=== PATIENT | female | born 1980 | race Caucasian/White ===

== ENCOUNTER → 2020-09-17 | Outpatient (CLI) | payer OTHER | END | disposition home or self-care (01) | LOC: LAB 10:02 | PROVIDERS: ATTEND Nurse Practitioner Family | DX: U07.1 COVID-19 (principal) | CPT/HCPCS: C9803; U0003 ==

== ENCOUNTER 2021-07-13 10:11 | Emergency (ER) | payer BC, OTHER ==
[~2021-07-13] VITALS: Ht 162.6 cm; Wt 54.0 kg
[2021-07-13] MEDS ORDERED: SODIUM CHLORIDE 0.9% 1,000 ML IV ONE (13:15)
[2021-07-13] MEDS ORDERED: KETOROLAC TROMETH 30 MG/ML 1ML VIAL IV ONE (13:15)
[2021-07-13] MEDS ORDERED: PROCHLORPERAZINE EDISYLATE 5 MG/ML 2ML VIAL IV ONE (13:15)
[2021-07-13] MEDS ORDERED: diphenhdrAMINE HCL 50 MG/1 ML VL IV ONE (13:15)
[2021-07-13 14:36] VITALS: BP 132/80
== END 2021-07-13 14:45 | disposition home or self-care (01) ==
LOC: ER 10:11
DX: G43.909 Migraine, unspecified, not intractable, without status migrainosus (principal)
CPT/HCPCS: 70450; 96361; 96374; 96375; 99284; J0780; J1200; J1885; J7030

== ENCOUNTER 2021-10-17 18:37 | Inpatient (IN) | payer BC ==
[~2021-10-17] VITALS: Ht 160 cm; Wt 63.5 kg
[2021-10-17 20:05] LABS: Basophils # (auto) 0 10 ^3/uL (0-0.2); Basophils % (auto) 0.4 % (0.0-2.0); Eosinophils # (auto) 0 10 ^3/uL (0-0.8); Eosinophils % (auto) 0.3 % (0.0-7.0); Hematocrit 43.2 % (36.0-46.0); Hemoglobin 14.3 g/dL (12.2-16.2); Lymphocytes # (auto) 1.5 10 ^3/uL (0.4-5.4); Lymphocytes % (auto) 11.4 % (10.0-50.0); Mean Corpuscular Hemoglobin 29.7 pg (28.0-32.0); Mean Corpuscular Hgb Conc. 33.1 g/dL (32.0-36.0); Mean Corpuscular Volume 89.7 fL (80.0-100.0); Monocytes # (auto) 0.7 10 ^3/uL (0-1.3); Monocytes % (auto) 5.2 % (0.0-12.0); Neutrophils # (auto) 10.9 10 ^3/uL (1.6-8.6); Neutrophils % (auto) 82.7 % (37.0-80.0); Nucleated Red Blood Cells % 0.1 %; Red Blood Cells 4.81 10^6/uL (4.0-5.20); Red Cell Distribution Width 12.9 % (11.8-14.3); White Blood Cell 13.2 10^3/uL (4.4-10.8)
[2021-10-17 20:45] LABS: Albumin 3.8 g/dL (3.4-5.0); Calcium 8.7 mg/dL (8.5-10.1); Potassium 4.5 mmol/L (3.5-5.1)
[2021-10-17 20:52] LABS: BUN/Creatinine Ratio 16.4; Bilirubin, Total 0.5 mg/dL (0.2-1.0); Total Protein 7.6 g/dL (6.4-8.2)
[2021-10-17] MEDS ORDERED: ASPirin 81 mg TAB PO ONE (21:15)
[2021-10-17] MEDS ORDERED: ENOXAPARIN SOD 100 MG/1 ML SYRINGE SC ONE (21:15)
[2021-10-17 22:38] LABS: INR 1.03 (0.9-1.15); Partial Thromboplastin Time 27.3 sec (23.6-33.0)
[2021-10-17] MEDS: NITROGLYCERIN 0.4 MG SL TAB SL PRN (22:49)
[2021-10-18] VITALS (15 sets, daily range): BP systolic 100–137; BP diastolic 66–92
[2021-10-18] MEDS ORDERED: MORPHINE SULFATE 4 MG/ML SYR/VIAL IV PRN (03:00)
[2021-10-18] MEDS ORDERED: MORPHINE SULFATE INJECTION 2 MG/ML SYRG IV PRN (03:00)
[2021-10-18] MEDS: SODIUM CHLORIDE 0.9% 1,000 ML IV SCH ×2 (03:17→15:44)
[2021-10-18 03:58] LABS: Anion Gap 11 (5-15); BUN/Creatinine Ratio 17.6; Blood Urea Nitrogen 9 mg/dL (7-18); Calcium 8.6 mg/dL (8.5-10.1); Carbon Dioxide 21 mmol/L (21-32); Chloride 109 mmol/L (98-107); GFR African American 169 mL/min; GFR Non-African American 140 mL/min; Glucose 98 mg/dL (74-106); Potassium 3.7 mmol/L (3.5-5.1); Sodium 141 mmol/L (136-145)
[2021-10-18 04:01] LABS: Urine Bacteria NONE SEEN /hpf (None Seen); Urine Blood Negative /uL (Negative); Urine Mucus FEW (None Seen); Urine Specific Gravity 1.022 (1.001-1.035); Urine WBC 1 /hpf (0 - 5)
[2021-10-18 04:18] LABS: Alcohol, Urine < 3.0 mg/dL (0-10); Barbiturate Scree,Urine NEGATIVE (NEGATIVE); Benzodiazephine Screen, Urine NEGATIVE (NEGATIVE); Cannabinoid Screen, Urine NEGATIVE (NEGATIVE); Cocaine Screen, Urine NEGATIVE (NEGATIVE); Opiate Scree,Urine NEGATIVE (NEGATIVE); Phencyclidine Screen, Urine NEGATIVE (NEGATIVE)
[2021-10-18 04:31] LABS: Amphetamine Screen, Urine NEGATIVE (NEGATIVE)
[2021-10-18] MEDS ORDERED: ANGIOMAX 250 MG VIAL IV ONE ×2 (11:37→13:20)
[2021-10-18] MEDS ORDERED: HEPARIN SODIUM (PORCINE) 5000 UNITS/ML 1ML VIAL ONE (11:37)
[2021-10-18] MEDS ORDERED: VERAPAMIL 2.5MG/ML INJ 2ML VIAL IV ONE (11:37)
[2021-10-18] MEDS ORDERED: MIDAZOLAM HCL 2MG/2ML 2ml VIAL (1mg/ml) ONE ×3 (11:38→13:28)
[2021-10-18] MEDS ORDERED: fentaNYL CITRATE 100 MCG/2 ML VL ONE ×2 (11:38→13:35)
[2021-10-18] MEDS ORDERED: IODIXANOL 320MG/ML 100ML BTL IV ONE ×2 (12:27→12:57)
[2021-10-18] MEDS ORDERED: TICAGRELOR 90 MG TAB ONE (12:41)
[2021-10-18] MEDS ORDERED: ASPirin 81 mg TAB ONE (12:42)
[2021-10-18] MEDS ORDERED: diphenhdrAMINE HCL 50 MG/1 ML VL ONE (13:17)
[2021-10-18] MEDS ORDERED: SODIUM CHL 0.9% 50 ML ONE (13:20)
[2021-10-18 15:00] LABS: Cholesterol 164 mg/dL (< 200)
[2021-10-18] MEDS ORDERED: fentaNYL CITRATE 100 MCG/2 ML VL IV PRN (15:00)
[2021-10-18 15:04] LABS: HDL Cholesterol 62 mg/dL (40-59); LDL Cholesterol 84 mg/dL (< 100); Triglycerides 98 mg/dL (< 150)
[2021-10-18] MEDS: PANTOPRAZOLE 40 MG/10 ML VIAL INJ IV SCH (15:44)
[2021-10-18] MEDS: ONDANSETRON HCL 4 MG/2 ML VIAL IV PRN ×2 (15:57→15:59)
[2021-10-18] MEDS ORDERED: NITROGLYCERIN 0.4 MG SL TAB SL ONE (20:40)
[2021-10-18] MEDS: NITROGLYCERIN 0.4 MG SL TAB SL PRN (20:54)
[2021-10-18] MEDS ORDERED: dilTIAZem 25 MG/5 ML VIAL IV ONE ×2 (21:03→21:15)
[2021-10-18] MEDS ORDERED: SACUBITRIL-VALSARTAN 24mg/26mg TAB PO SCH (22:00)
[2021-10-18] MEDS: CARVEDILOL 3.125 MG TAB PO SCH (22:00)
[2021-10-18] MEDS: TICAGRELOR 90 MG TAB PO SCH (22:47)
[2021-10-18] MEDS: ATORVASTATIN 20 MG TAB PO SCH (22:48)
[2021-10-19] VITALS (8 sets, daily range): BP systolic 82–106; BP diastolic 42–84
[2021-10-19] MEDS ORDERED: ACETAMINOPHEN 325 MG TAB PO PRN (02:15)
[2021-10-19] MEDS: SODIUM CHLORIDE 0.9% 1,000 ML IV SCH (02:32)
[2021-10-19 06:56] LABS: Basophils # (auto) 0 10 ^3/uL (0-0.2); Basophils % (auto) 0.1 % (0.0-2.0); Eosinophils # (auto) 0 10 ^3/uL (0-0.8); Hematocrit 43.2 % (36.0-46.0); Hemoglobin 14.6 g/dL (12.2-16.2); Lymphocytes % (auto) 4.2 % (10.0-50.0); Mean Corpuscular Hemoglobin 29.8 pg (28.0-32.0); Mean Corpuscular Hgb Conc. 33.8 g/dL (32.0-36.0); Mean Corpuscular Volume 88.2 fL (80.0-100.0); Monocytes # (auto) 1.6 10 ^3/uL (0-1.3); Monocytes % (auto) 6.7 % (0.0-12.0); Neutrophils # (auto) 20.7 10 ^3/uL (1.6-8.6); White Blood Cell 23.3 10^3/uL (4.4-10.8)
[2021-10-19 07:02] LABS: INR 1.07 (0.9-1.15); Partial Thromboplastin Time 28.7 sec (23.6-33.0)
[2021-10-19 07:08] LABS: Calcium 8.2 mg/dL (8.5-10.1); Potassium 3.5 mmol/L (3.5-5.1)
[2021-10-19] MEDS ORDERED: KETOROLAC TROMETH 30 MG/ML 1ML VIAL IV ONE (07:30)
[2021-10-19] MEDS ORDERED: LORazepam 0.5 MG TAB PO PRN ×2 (08:00→13:45)
[2021-10-19] MEDS: ASPirin 81 mg TAB PO SCH (09:27)
[2021-10-19] MEDS: TICAGRELOR 90 MG TAB PO SCH ×2 (09:27→22:00)
[2021-10-19] MEDS: PANTOPRAZOLE 40 MG/10 ML VIAL INJ IV SCH (09:27)
[2021-10-19] MEDS: CARVEDILOL 3.125 MG TAB PO SCH ×3 (09:28→23:00)
[2021-10-19] MEDS: SACUBITRIL-VALSARTAN 24mg/26mg TAB PO SCH ×2 (09:29→22:00)
[2021-10-19] MEDS ORDERED: SODIUM CHLORIDE 0.9% 1,000 ML IV SCH ×2 (09:30→13:45)
[2021-10-19] MEDS: COLCHICINE 0.6 MG CAP PO SCH ×2 (09:54→18:46)
[2021-10-19] MEDS ORDERED: COLCHICINE 0.6 MG CAP PO SCH (10:00)
[2021-10-19] MEDS ORDERED: DOCUSATE SOD 100 MG CAP PO PRN (13:45)
[2021-10-19] MEDS: ATORVASTATIN 20 MG TAB PO SCH (22:00)
[2021-10-20] MEDS ORDERED: SODIUM CHLORIDE 0.9% 250 ML IV ONE (08:15)
[2021-10-20 08:30] VITALS: BP 86/49
[2021-10-20] MEDS: SODIUM CHLORIDE 0.9% 1,000 ML IV SCH (08:30)
[2021-10-20 08:35] LABS: Basophils # (auto) 0.2 10 ^3/uL (0-0.2); Basophils % (auto) 1.5 % (0.0-2.0); Eosinophils # (auto) 0.1 10 ^3/uL (0-0.8); Eosinophils % (auto) 1.1 % (0.0-7.0); Hematocrit 40.4 % (36.0-46.0); Hemoglobin 13.5 g/dL (12.2-16.2); Lymphocytes # (auto) 0.7 10 ^3/uL (0.4-5.4); Lymphocytes % (auto) 5.7 % (10.0-50.0); Mean Corpuscular Hemoglobin 29.5 pg (28.0-32.0); Mean Corpuscular Hgb Conc. 33.3 g/dL (32.0-36.0); Mean Corpuscular Volume 88.5 fL (80.0-100.0); Monocytes # (auto) 1.2 10 ^3/uL (0-1.3); Monocytes % (auto) 9.7 % (0.0-12.0); Nucleated Red Blood Cells % 0.1 %; Red Blood Cells 4.57 10^6/uL (4.0-5.20); Red Cell Distribution Width 12.8 % (11.8-14.3); White Blood Cell 12.2 10^3/uL (4.4-10.8)
[2021-10-20 08:40] LABS: Potassium 3.3 mmol/L (3.5-5.1)
[2021-10-20 08:51] LABS: Albumin 2.7 g/dL (3.4-5.0); BUN/Creatinine Ratio 14.6; Bilirubin, Total 1.4 mg/dL (0.2-1.0)
[2021-10-20 09:00] VITALS: BP 86/49
[2021-10-20] MEDS ORDERED: POTASSIUM EFFERVESENT TAB 25 MEQ PO ONE (10:00)
[2021-10-20] MEDS: PANTOPRAZOLE 40 MG/10 ML VIAL INJ IV SCH (10:49)
[2021-10-20] MEDS: ASPirin 81 mg TAB PO SCH (10:49)
[2021-10-20] MEDS: COLCHICINE 0.6 MG CAP PO SCH (10:49)
[2021-10-20] MEDS: CARVEDILOL 3.125 MG TAB PO SCH ×2 (10:50→22:00)
[2021-10-20] MEDS: SACUBITRIL-VALSARTAN 24mg/26mg TAB PO SCH ×2 (10:50→22:00)
[2021-10-20] MEDS: TICAGRELOR 90 MG TAB PO SCH ×2 (10:51→22:15)
[2021-10-20 11:50] LABS: Magnesium 2.1 mg/dL (1.6-2.6); Phosphorus 1.8 mg/dL (2.5-4.90)
[2021-10-20 13:00] VITALS: BP 101/62
[2021-10-20] MEDS ORDERED: POTASSIUM PHOSPHATE 26.4 MEQ in SODIUM CHL 0.9% 100 ML IV ONE (13:45)
[2021-10-20 17:00] VITALS: BP 91/52
[2021-10-20] MEDS: NEUTRA-PHOS TABLET PO SCH ×2 (17:40→22:14)
[2021-10-20] MEDS ORDERED: POTASSIUM CHL 20 Meq TABLET PO SCH (22:00)
[2021-10-20] MEDS: ATORVASTATIN 20 MG TAB PO SCH (22:13)
[2021-10-20] MEDS: MAGNESIUM OXIDE 400 MG TAB PO SCH (22:14)
[2021-10-21 05:23] VITALS: BP 82/43
[2021-10-21 05:38] LABS: Basophils # (auto) 0.1 10 ^3/uL (0-0.2); Basophils % (auto) 0.7 % (0.0-2.0); Eosinophils # (auto) 0.1 10 ^3/uL (0-0.8); Eosinophils % (auto) 0.7 % (0.0-7.0); Hematocrit 37.7 % (36.0-46.0); Hemoglobin 12.9 g/dL (12.2-16.2); Lymphocytes # (auto) 1.3 10 ^3/uL (0.4-5.4); Lymphocytes % (auto) 13.7 % (10.0-50.0); Mean Corpuscular Hemoglobin 30.2 pg (28.0-32.0); Mean Corpuscular Hgb Conc. 34.3 g/dL (32.0-36.0); Mean Corpuscular Volume 88.1 fL (80.0-100.0); Monocytes % (auto) 10.9 % (0.0-12.0); Neutrophils # (auto) 6.8 10 ^3/uL (1.6-8.6); Nucleated Red Blood Cells % 0.1 %; Red Blood Cells 4.28 10^6/uL (4.0-5.20); White Blood Cell 9.1 10^3/uL (4.4-10.8)
[2021-10-21 06:00] LABS: Calcium 7.7 mg/dL (8.5-10.1); Potassium 3.4 mmol/L (3.5-5.1)
[2021-10-21 06:04] LABS: BUN/Creatinine Ratio 18.6
[2021-10-21] MEDS: SODIUM CHLORIDE 0.9% 1,000 ML IV SCH ×2 (06:49→09:58)
[2021-10-21] MEDS ORDERED: POTASSIUM CHL 20 Meq TABLET PO ONE (08:00)
[2021-10-21 09:00] VITALS: BP 92/48
[2021-10-21] MEDS: PANTOPRAZOLE 40 MG/10 ML VIAL INJ IV SCH (09:55)
[2021-10-21] MEDS: TICAGRELOR 90 MG TAB PO SCH (09:55)
[2021-10-21] MEDS: COLCHICINE 0.6 MG CAP PO SCH (09:55)
[2021-10-21] MEDS: ASPirin 81 mg TAB PO SCH (09:55)
[2021-10-21] MEDS: CARVEDILOL 3.125 MG TAB PO SCH (09:56)
[2021-10-21] MEDS: MAGNESIUM OXIDE 400 MG TAB PO SCH (09:58)
[2021-10-21] MEDS ORDERED: SACUBITRIL-VALSARTAN 24mg/26mg TAB PO SCH (10:00)
[2021-10-21] MEDS: NEUTRA-PHOS TABLET PO SCH ×2 (10:00→13:40)
[2021-10-21] MEDS ORDERED: ASPI1TAB20 PO (10:43)
[2021-10-21] MEDS ORDERED: PANT40TA2 PO (10:43)
[2021-10-21] MEDS ORDERED: TICA90TA PO (10:43)
[2021-10-21] MEDS ORDERED: SACU1TAB PO (10:43)
[2021-10-21] MEDS ORDERED: COLC0.6T56 PO (10:43)
[2021-10-21] MEDS ORDERED: MAGN241.4 PO (10:43)
[2021-10-21] MEDS ORDERED: NITR0.4S29 SL (10:43)
[2021-10-21] MEDS ORDERED: CAR3125T PO (10:43)
[2021-10-21] MEDS ORDERED: ATOR40TA52 PO (10:43)
[2021-10-21] MEDS ORDERED: LORA0.5T20 PO (12:52)
[2021-10-21 13:00] VITALS: BP 99/55
[2021-10-21 13:43] VITALS: BP 92/48
[2021-10-22] MEDS ORDERED: POTASSIUM CHL 20 Meq TABLET PO SCH (10:00)
== END 2021-10-21 14:36 | disposition home or self-care (01) | DRG 246 ==
LOC: ER 18:44 → OVERFLOW 10-18 02:53 → TELE-CENTR 10-18 17:15
PROVIDERS: ADMIT Nurse Practitioner; ATTEND Internal Medicine
PROC: 027037Z Dilation of Coronary Artery, One Artery with Four or More Drug-eluting Intraluminal Devices, Percutaneous Approach (ICD-10-PCS; principal; 2021-10-18)
PROC: 4A023N7 Measurement of Cardiac Sampling and Pressure, Left Heart, Percutaneous Approach (ICD-10-PCS; 2021-10-18)
PROC: B211YZZ Fluoroscopy of Multiple Coronary Arteries using Other Contrast (ICD-10-PCS; 2021-10-18)
PROC: B215YZZ Fluoroscopy of Left Heart using Other Contrast (ICD-10-PCS; 2021-10-18)
DX: I21.4 Non-ST elevation (NSTEMI) myocardial infarction (principal); I50.41 Acute combined systolic (congestive) and diastolic (congestive) heart failure; F41.9 Anxiety disorder, unspecified; E87.6 Hypokalemia; I25.5 Ischemic cardiomyopathy; Z20.822 Contact with and (suspected) exposure to COVID-19; Z90.49 Acquired absence of other specified parts of digestive tract; Z90.710 Acquired absence of both cervix and uterus; Z83.3 Family history of diabetes mellitus; I25.2 Old myocardial infarction; Z86.16 Personal history of COVID-19; Z82.49 Family history of ischemic heart disease and other diseases of the circulatory system
CPT/HCPCS: 36415; 71045; 71046; 80048; 80053; 80061; 80307; 81001; 83735; 83880; 84100; 84484; 84702; 85025; 85379; 85610; 85652; 85730; 87426; 93005; 93306; 96372; 99152; 99153; C1874; C9113; G0378; J2250; J2405; Q9967

== ENCOUNTER 2021-10-25 21:19 | Emergency (ER) | payer BC ==
[~2021-10-25] VITALS: Ht 167.6 cm; Wt 52.2 kg
[~2021-10-25 21:19] MED LIST: ASPI1TAB20 PO; ATOR40TA52 PO; CAR3125T PO; COLC0.6T56 PO; LORA0.5T20 PO; MAGN241.4 PO; NITR0.4S29 SL; PANT40TA2 PO; SACU1TAB PO; TICA90TA PO
[2021-10-25 21:35] VITALS: BP 104/82
[2021-10-25 22:15] LABS: Basophils # (auto) 0.1 10 ^3/uL (0-0.2); Basophils % (auto) 0.7 % (0.0-2.0); Eosinophils # (auto) 0.1 10 ^3/uL (0-0.8); Eosinophils % (auto) 0.9 % (0.0-7.0); Hematocrit 41.3 % (36.0-46.0); Hemoglobin 14.2 g/dL (12.2-16.2); Lymphocytes # (auto) 1.8 10 ^3/uL (0.4-5.4); Mean Corpuscular Hgb Conc. 34.5 g/dL (32.0-36.0); Mean Corpuscular Volume 87.1 fL (80.0-100.0); Monocytes % (auto) 9.4 % (0.0-12.0); Neutrophils # (auto) 7.8 10 ^3/uL (1.6-8.6); Red Blood Cells 4.75 10^6/uL (4.0-5.20); Red Cell Distribution Width 12.9 % (11.8-14.3); White Blood Cell 10.8 10^3/uL (4.4-10.8)
[2021-10-25 22:33] LABS: Albumin 3.5 g/dL (3.4-5.0); Calcium 8.7 mg/dL (8.5-10.1)
[2021-10-25 22:39] LABS: BUN/Creatinine Ratio 15.2; Bilirubin, Total 0.5 mg/dL (0.2-1.0); Total Protein 7.4 g/dL (6.4-8.2)
== END 2021-10-26 00:45 | disposition left against medical advice (07) ==
LOC: EDBD 21:19 → EDUNIT# 21:19 → ER 21:23
DX: R07.89 Other chest pain (principal); Z53.29 Procedure and treatment not carried out because of patient's decision for other reasons; Z88.6 Allergy status to analgesic agent; Z90.49 Acquired absence of other specified parts of digestive tract; Z90.710 Acquired absence of both cervix and uterus; Z79.899 Other long term (current) drug therapy
CPT/HCPCS: 36415; 71045; 80053; 83880; 84484; 85025; 93005

== ENCOUNTER → 2021-10-26 | Outpatient (CLI) | payer BC | END | disposition home or self-care (01) | LOC: LAB 09:57 | PROVIDERS: ATTEND Internal Medicine | DX: I50.40 Unspecified combined systolic (congestive) and diastolic (congestive) heart failure (principal); I21.4 Non-ST elevation (NSTEMI) myocardial infarction; I25.10 Atherosclerotic heart disease of native coronary artery without angina pectoris; I25.5 Ischemic cardiomyopathy | CPT/HCPCS: 36415; 84484; 85379 ==

== ENCOUNTER 2021-10-27 08:13 | Inpatient (IN) | payer BC ==
[~2021-10-27] VITALS: Ht 160 cm; Wt 54.0 kg
[2021-10-27 08:45] VITALS: BP 100/59
[2021-10-27 08:50] LABS: Basophils # (auto) 0 10 ^3/uL (0-0.2); Basophils % (auto) 0.4 % (0.0-2.0); Eosinophils # (auto) 0.1 10 ^3/uL (0-0.8); Eosinophils % (auto) 0.7 % (0.0-7.0); Hematocrit 44.3 % (36.0-46.0); Hemoglobin 14.8 g/dL (12.2-16.2); Lymphocytes # (auto) 1.1 10 ^3/uL (0.4-5.4); Lymphocytes % (auto) 12.7 % (10.0-50.0); Mean Corpuscular Hemoglobin 29.7 pg (28.0-32.0); Mean Corpuscular Hgb Conc. 33.3 g/dL (32.0-36.0); Mean Corpuscular Volume 89.2 fL (80.0-100.0); Monocytes # (auto) 0.7 10 ^3/uL (0-1.3); Neutrophils # (auto) 6.9 10 ^3/uL (1.6-8.6); Neutrophils % (auto) 78.2 % (37.0-80.0); Nucleated Red Blood Cells % 0.1 %; Red Blood Cells 4.97 10^6/uL (4.0-5.20); Red Cell Distribution Width 12.8 % (11.8-14.3); White Blood Cell 8.8 10^3/uL (4.4-10.8)
[2021-10-27] MEDS ORDERED: SODIUM CHLORIDE 0.9% 1,000 ML IV ONE (09:00)
[2021-10-27] MEDS ORDERED: MORPHINE SULFATE INJECTION 2 MG/ML SYRG IV ONE (09:00)
[2021-10-27] MEDS ORDERED: ONDANSETRON HCL 4 MG/2 ML VIAL IV ONE (09:00)
[2021-10-27 09:06] LABS: Albumin 3.6 g/dL (3.4-5.0); Calcium 8.9 mg/dL (8.5-10.1); Potassium 3.6 mmol/L (3.5-5.1)
[2021-10-27 09:11] LABS: BUN/Creatinine Ratio 13.2
[2021-10-27 09:12] LABS: Bilirubin, Total 0.8 mg/dL (0.2-1.0); Total Protein 7.8 g/dL (6.4-8.2)
[2021-10-27 09:43] LABS: INR 1.06 (0.9-1.15); Partial Thromboplastin Time 27.2 sec (23.6-33.0)
[2021-10-27] MEDS ORDERED: HYDROmorphone HCL 2 MG/ML VL IV ONE (10:30)
[2021-10-27] MEDS ORDERED: ENOXAPARIN SOD 100 MG/1 ML SYRINGE SC ONE (10:30)
[2021-10-27] MEDS ORDERED: MORPHINE SULFATE INJECTION 2 MG/ML SYRG IV PRN (10:30)
[2021-10-27] MEDS ORDERED: NITROGLYCERIN 0.4 MG SL TAB SL PRN (10:30)
[2021-10-27] MEDS ORDERED: LIDOCAINE 2%HCL (LOCAL ANESTH.) INJ 20ML MDV ONE ×2 (11:12→13:07)
[2021-10-27] MEDS ORDERED: IODIXANOL 320MG/ML 100ML BTL IV ONE (11:12)
[2021-10-27] MEDS ORDERED: HEPARIN IN NS 1000Units/500mL 1,500 ML ONE (11:13)
[2021-10-27] MEDS ORDERED: ONDANSETRON HCL 4 MG/2 ML VIAL IV PRN (11:15)
[2021-10-27] MEDS ORDERED: HYDROmorphone HCL 2 MG/ML VL IV PRN (11:15)
[2021-10-27] MEDS ORDERED: METOPROLOL SUCCINATE XL 50 MG TAB PO ONE (11:15)
[2021-10-27] MEDS ORDERED: ANGIOMAX 250 MG VIAL IV ONE (13:08)
[2021-10-27] MEDS ORDERED: fentaNYL CITRATE 5 ML ONE (13:09)
[2021-10-27] MEDS ORDERED: MIDAZOLAM HCL 2MG/2ML 2ml VIAL (1mg/ml) ONE (13:09)
[2021-10-27] MEDS ORDERED: SODIUM CHL 0.9% 0 ML ONE (13:09)
[2021-10-27] MEDS ORDERED: FAMOTIDINE (10MG/ML) 2ML VL IV ONE (13:15)
[2021-10-27] MEDS ORDERED: SODIUM CHLORIDE 0.9% 1,000 ML IV SCH (13:15)
[2021-10-27] MEDS ORDERED: DOCUSATE SOD 100 MG CAP PO PRN (13:15)
[2021-10-27] MEDS ORDERED: VERAPAMIL 2.5MG/ML INJ 2ML VIAL IV ONE (13:17)
[2021-10-27] MEDS ORDERED: HEPARIN SODIUM (PORCINE) 5000 UNITS/ML 1ML VIAL ONE (13:17)
[2021-10-27] MEDS ORDERED: EPINEPHrine HCL 1 MG/10 ML SYRG ONE (13:27)
[2021-10-27] MEDS ORDERED: LORazepam 0.5 MG TAB PO PRN (13:30)
[2021-10-27] MEDS ORDERED: SACUBITRIL-VALSARTAN 24mg/26mg TAB PO SCH (22:00)
[2021-10-27] MEDS ORDERED: CARVEDILOL 3.125 MG TAB PO SCH (22:00)
[2021-10-27] MEDS ORDERED: ATORVASTATIN 20 MG TAB PO SCH (22:00)
[2021-10-27] MEDS ORDERED: TICAGRELOR 90 MG TAB PO SCH (22:00)
[2021-10-28] MEDS ORDERED: ENOXAPARIN SOD 40 MG/0.4 ML SYRINGE SC SCH (10:00)
[2021-10-28] MEDS ORDERED: FAMOTIDINE (10MG/ML) 2ML VL IV SCH (10:00)
[2021-10-28] MEDS ORDERED: METOPROLOL SUCCINATE XL 50 MG TAB PO SCH (10:00)
[2021-10-28] MEDS ORDERED: ASPirin 81 mg TAB PO SCH (10:00)
[2021-10-28] MEDS ORDERED: COLCHICINE 0.6 MG CAP PO SCH (10:00)
== END 2021-10-27 16:15 | disposition home or self-care (01) | DRG 287 ==
LOC: ER 08:13 → TELE 10:19
PROVIDERS: ADMIT Hospitalist; ATTEND Hospitalist
PROC: 4A023N7 Measurement of Cardiac Sampling and Pressure, Left Heart, Percutaneous Approach (ICD-10-PCS; principal; 2021-10-27)
PROC: B211YZZ Fluoroscopy of Multiple Coronary Arteries using Other Contrast (ICD-10-PCS; 2021-10-27)
PROC: B215YZZ Fluoroscopy of Left Heart using Other Contrast (ICD-10-PCS; 2021-10-27)
DX: I25.10 Atherosclerotic heart disease of native coronary artery without angina pectoris (principal); I50.40 Unspecified combined systolic (congestive) and diastolic (congestive) heart failure; E78.5 Hyperlipidemia, unspecified; F41.9 Anxiety disorder, unspecified; I11.0 Hypertensive heart disease with heart failure; I25.5 Ischemic cardiomyopathy; M1A.9XX0 Chronic gout, unspecified, without tophus (tophi); R53.81 Other malaise; Z20.822 Contact with and (suspected) exposure to COVID-19; I25.2 Old myocardial infarction; Z79.82 Long term (current) use of aspirin; Z82.49 Family history of ischemic heart disease and other diseases of the circulatory system; Z83.3 Family history of diabetes mellitus; Z90.710 Acquired absence of both cervix and uterus
CPT/HCPCS: 36415; 71045; 80053; 83735; 84443; 84484; 85025; 85610; 85730; 87426; 93005; 93458; 96360; 96361; 99152; G0378; J2250; Q9967

== ENCOUNTER → 2021-11-08 | Outpatient (CLI) | payer BC ==
[2021-11-08 11:36] LABS: Cholesterol 111 mg/dL (< 200)
[2021-11-08 11:39] LABS: HDL Cholesterol 54 mg/dL (40-59); LDL Cholesterol 42 mg/dL (< 100); Triglycerides 68 mg/dL (< 150)
== END | disposition home or self-care (01) ==
LOC: LAB 09:22
PROVIDERS: ATTEND Internal Medicine
DX: I25.5 Ischemic cardiomyopathy (principal); M25.10 Fistula, unspecified joint; E78.5 Hyperlipidemia, unspecified; M10.9 Gout, unspecified; Z95.5 Presence of coronary angioplasty implant and graft
CPT/HCPCS: 36415; 80061; 81241; 83090; 85301; 85302; 85305; 85306; 85613; 85670; 85705; 85732; 86160; 86225; 86235; 86376; 86431

== ENCOUNTER → 2021-12-29 | Outpatient (CLI) | payer BC ==
[2021-12-29 12:54] LABS: Basophils # (auto) 0 10 ^3/uL (0-0.2); Basophils % (auto) 0.4 % (0.0-2.0); Eosinophils # (auto) 0 10 ^3/uL (0-0.8); Eosinophils % (auto) 0.6 % (0.0-7.0); Hematocrit 39.2 % (36.0-46.0); Hemoglobin 13.2 g/dL (12.2-16.2); Lymphocytes # (auto) 1.6 10 ^3/uL (0.4-5.4); Lymphocytes % (auto) 19.8 % (10.0-50.0); Mean Corpuscular Hemoglobin 29.7 pg (28.0-32.0); Mean Corpuscular Hgb Conc. 33.7 g/dL (32.0-36.0); Mean Corpuscular Volume 88.2 fL (80.0-100.0); Monocytes # (auto) 0.7 10 ^3/uL (0-1.3); Monocytes % (auto) 9.4 % (0.0-12.0); Neutrophils # (auto) 5.5 10 ^3/uL (1.6-8.6); Neutrophils % (auto) 69.8 % (37.0-80.0); Red Blood Cells 4.44 10^6/uL (4.0-5.20); Red Cell Distribution Width 13.3 % (11.8-14.3); White Blood Cell 7.9 10^3/uL (4.4-10.8)
== END | disposition home or self-care (01) ==
LOC: LAB 12:20
PROVIDERS: ATTEND Internal Medicine
DX: I25.10 Atherosclerotic heart disease of native coronary artery without angina pectoris (principal); Z98.61 Coronary angioplasty status
CPT/HCPCS: 36415; 85025

== ENCOUNTER → 2022-02-07 | Outpatient (CLI) | payer BC | END | disposition home or self-care (01) | LOC: XYW 07:32 | PROVIDERS: ATTEND Internal Medicine | DX: I25.10 Atherosclerotic heart disease of native coronary artery without angina pectoris (principal) | CPT/HCPCS: 93306 ==

== ENCOUNTER → 2022-02-07 | Outpatient (CLI) | payer BC ==
[2022-02-07 09:17] LABS: Basophils # (auto) 0.1 10 ^3/uL (0-0.2); Basophils % (auto) 0.9 % (0.0-2.0); Eosinophils # (auto) 0 10 ^3/uL (0-0.8); Eosinophils % (auto) 0.7 % (0.0-7.0); Hematocrit 41.8 % (36.0-46.0); Hemoglobin 13.8 g/dL (12.2-16.2); Lymphocytes % (auto) 14.3 % (10.0-50.0); Mean Corpuscular Hemoglobin 29.5 pg (28.0-32.0); Mean Corpuscular Volume 89.5 fL (80.0-100.0); Monocytes # (auto) 0.6 10 ^3/uL (0-1.3); Monocytes % (auto) 8.3 % (0.0-12.0); Neutrophils # (auto) 5.3 10 ^3/uL (1.6-8.6); Neutrophils % (auto) 75.8 % (37.0-80.0); Nucleated Red Blood Cells % 0.1 %; Red Blood Cells 4.67 10^6/uL (4.0-5.20); Red Cell Distribution Width 13.6 % (11.8-14.3); White Blood Cell 6.9 10^3/uL (4.4-10.8)
[2022-02-07 10:12] LABS: Calcium 8.6 mg/dL (8.5-10.1); Potassium 4.3 mmol/L (3.5-5.1)
== END | disposition home or self-care (01) ==
LOC: LAB 09:04
PROVIDERS: ATTEND Internal Medicine
DX: I25.10 Atherosclerotic heart disease of native coronary artery without angina pectoris (principal); I10 Essential (primary) hypertension
CPT/HCPCS: 36415; 80048; 85025

== ENCOUNTER → 2022-03-16 | Outpatient (CLI) | payer BC | END | disposition home or self-care (01) | LOC: LAB 09:13 | PROVIDERS: ATTEND Nurse Practitioner | DX: Z20.822 Contact with and (suspected) exposure to COVID-19 (principal) | CPT/HCPCS: C9803; U0003 ==

== ENCOUNTER 2022-06-03 12:35 | Emergency (ER) | payer BC ==
[~2022-06-03] VITALS: Ht 162.6 cm; Wt 55.5 kg
[2022-06-03 13:37] LABS: Basophils # (auto) 0 10 ^3/uL (0-0.2); Basophils % (auto) 0.4 % (0.0-2.0); Eosinophils # (auto) 0.2 10 ^3/uL (0-0.8); Hematocrit 39.6 % (36.0-46.0); Hemoglobin 13.1 g/dL (12.2-16.2); Lymphocytes # (auto) 1.3 10 ^3/uL (0.4-5.4); Lymphocytes % (auto) 14.6 % (10.0-50.0); Mean Corpuscular Hemoglobin 28.8 pg (28.0-32.0); Mean Corpuscular Volume 87.1 fL (80.0-100.0); Monocytes # (auto) 0.7 10 ^3/uL (0-1.3); Monocytes % (auto) 7.7 % (0.0-12.0); Neutrophils # (auto) 6.7 10 ^3/uL (1.6-8.6); Neutrophils % (auto) 75.3 % (37.0-80.0); Red Blood Cells 4.55 10^6/uL (4.0-5.20); Red Cell Distribution Width 13.4 % (11.8-14.3); White Blood Cell 8.9 10^3/uL (4.4-10.8)
[2022-06-03] MEDS ORDERED: ASPirin 325 MG TAB PO ONE (13:45)
[2022-06-03 14:03] LABS: Albumin 3.7 g/dL (3.4-5.0); Calcium 8.7 mg/dL (8.5-10.1); Potassium 3.9 mmol/L (3.5-5.1)
[2022-06-03 14:07] LABS: BUN/Creatinine Ratio 17.1; Bilirubin, Total 0.7 mg/dL (0.2-1.0); Total Protein 7.5 g/dL (6.4-8.2)
[2022-06-03 16:42] VITALS: BP 107/57
== END 2022-06-03 16:46 | disposition home or self-care (01) ==
LOC: EEVIPCON 12:35 → ER 12:35
DX: R07.89 Other chest pain (principal); I11.0 Hypertensive heart disease with heart failure; I50.9 Heart failure, unspecified; E78.5 Hyperlipidemia, unspecified; M10.9 Gout, unspecified; I25.2 Old myocardial infarction; Z90.49 Acquired absence of other specified parts of digestive tract; Z90.710 Acquired absence of both cervix and uterus; Z98.61 Coronary angioplasty status; Z88.6 Allergy status to analgesic agent; Z79.899 Other long term (current) drug therapy
CPT/HCPCS: 36415; 71046; 80053; 84484; 85025; 93005

== ENCOUNTER → 2022-06-28 | Outpatient (CLI) | payer BC ==
[~2022-06-28] VITALS: Ht 162.6 cm; Wt 54.9 kg
[~2022-06-28] MED LIST changes: +ADENOSINE 46 MG in GIVE UN-DILUTED 0 ML IV STA; +ALBUAER3 IN
[2022-06-28 10:38] VITALS: BP 119/35
== END | disposition home or self-care (01) ==
LOC: XY 09:11
PROVIDERS: ATTEND Internal Medicine
DX: I25.118 Atherosclerotic heart disease of native coronary artery with other forms of angina pectoris (principal); R07.89 Other chest pain; D68.69 Other thrombophilia; Z95.5 Presence of coronary angioplasty implant and graft
CPT/HCPCS: 78452; 93017; A9500; J0153

== ENCOUNTER → 2022-07-06 | Outpatient (CLI) | payer BC ==
[~2022-07-06] MED LIST changes: -ADENOSINE 46 MG in GIVE UN-DILUTED 0 ML IV STA
[2022-07-06 08:16] LABS: Basophils # (auto) 0 10 ^3/uL (0-0.2); Basophils % (auto) 0.5 % (0.0-2.0); Eosinophils # (auto) 0 10 ^3/uL (0-0.8); Eosinophils % (auto) 0.7 % (0.0-7.0); Hematocrit 41.3 % (36.0-46.0); Hemoglobin 13.5 g/dL (12.2-16.2); Lymphocytes # (auto) 1.2 10 ^3/uL (0.4-5.4); Mean Corpuscular Hemoglobin 28.8 pg (28.0-32.0); Mean Corpuscular Hgb Conc. 32.8 g/dL (32.0-36.0); Mean Corpuscular Volume 87.8 fL (80.0-100.0); Monocytes # (auto) 0.5 10 ^3/uL (0-1.3); Monocytes % (auto) 7.9 % (0.0-12.0); Neutrophils # (auto) 4.4 10 ^3/uL (1.6-8.6); Neutrophils % (auto) 71.9 % (37.0-80.0); Red Cell Distribution Width 13.5 % (11.8-14.3); White Blood Cell 6.2 10^3/uL (4.4-10.8)
[2022-07-06 08:32] LABS: INR 1.04 (0.9-1.15); Partial Thromboplastin Time 29.3 sec (24.6-33.4)
[2022-07-06 08:40] LABS: Albumin 3.9 g/dL (3.4-5.0); Calcium 8.8 mg/dL (8.5-10.1)
[2022-07-06 08:46] LABS: BUN/Creatinine Ratio 12.3; Total Protein 7.4 g/dL (6.4-8.2)
== END | disposition home or self-care (01) ==
LOC: LAB 07:38
PROVIDERS: ATTEND Internal Medicine
DX: I25.10 Atherosclerotic heart disease of native coronary artery without angina pectoris (principal); E78.5 Hyperlipidemia, unspecified; R76.8 Other specified abnormal immunological findings in serum
CPT/HCPCS: 36415; 80053; 80061; 82306; 83090; 85025; 85610; 85730

== ENCOUNTER → 2022-08-25 | Outpatient (CLI) | payer BC | END | disposition home or self-care (01) | LOC: XYW 07:27 | PROVIDERS: ATTEND Internal Medicine | DX: I07.1 Rheumatic tricuspid insufficiency (principal); I25.10 Atherosclerotic heart disease of native coronary artery without angina pectoris | CPT/HCPCS: 93306 ==

== ENCOUNTER → 2023-07-14 | Outpatient (CLI) | payer BC ==
[~2023-07-14] MED LIST changes: +LORA-1121 PO; -LORA0.5T20 PO
[2023-07-14 08:51] LABS: Basophils # (auto) 0 10 ^3/uL (0-0.2); Basophils % (auto) 0.4 % (0.0-2.0); Eosinophils # (auto) 0.1 10 ^3/uL (0-0.8); Eosinophils % (auto) 0.7 % (0.0-7.0); Hematocrit 41.9 % (36.0-46.0); Hemoglobin 13.9 g/dL (12.2-16.2); Lymphocytes # (auto) 1.5 10 ^3/uL (0.4-5.4); Lymphocytes % (auto) 17.1 % (10.0-50.0); Mean Corpuscular Hemoglobin 29.7 pg (28.0-32.0); Mean Corpuscular Hgb Conc. 33.2 g/dL (32.0-36.0); Mean Corpuscular Volume 89.4 fL (80.0-100.0); Monocytes # (auto) 0.7 10 ^3/uL (0-1.3); Monocytes % (auto) 7.5 % (0.0-12.0); Neutrophils # (auto) 6.6 10 ^3/uL (1.6-8.6); Neutrophils % (auto) 74.3 % (37.0-80.0); Red Blood Cells 4.69 10^6/uL (4.0-5.20); Red Cell Distribution Width 13.2 % (11.8-14.3); White Blood Cell 8.9 10^3/uL (4.4-10.8)
[2023-07-14 09:22] LABS: Erythrocyte Sedimentation Rate 6 mm/hr (0-20)
[2023-07-14 09:30] LABS: Alanine Aminotransferase 16 U/L (7-40); Alkaline Phosphatase 54 U/L (46-116); Anion Gap 6 (5-15); BUN/Creatinine Ratio 9.3 (10.0-20.0); Blood Urea Nitrogen 7 mg/dL (9-23); CRP High Sensitivity 0.05 mg/dL (<1.0); Calcium 9.5 mg/dL (8.5-10.1); Carbon Dioxide 29 mmol/L (20-30); Chloride 105 mmol/L (98-107); Glucose 72 mg/dL (74-106); Sodium 140 mmol/L (136-145)
[2023-07-14 09:31] LABS: Albumin 4.5 g/dL (3.2-4.8); Aspartate Aminotransferase 11 U/L (13-40); Creatine Kinase IFCC 63 U/L (34-145); Total Protein 7.4 g/dL (5.7-8.2)
== END | disposition home or self-care (01) ==
LOC: LAB 08:24
PROVIDERS: ATTEND Internal Medicine Rheumatology
DX: M35.9 Systemic involvement of connective tissue, unspecified (principal)
CPT/HCPCS: 36415; 80053; 82085; 82550; 83615; 85025; 85652; 86141

== ENCOUNTER → 2023-10-24 | Outpatient (CLI) | payer BC | END | disposition home or self-care (01) | LOC: EEVIPCON → XYW 07:33 | PROVIDERS: ATTEND Student in an Organized Health Care Education/Training Program | DX: I07.1 Rheumatic tricuspid insufficiency (principal); I25.10 Atherosclerotic heart disease of native coronary artery without angina pectoris | CPT/HCPCS: 93306 ==

== ENCOUNTER → 2023-11-16 | Outpatient (CLI) | payer BC ==
[~2023-11-16] VITALS: Ht 162.6 cm; Wt 58.5 kg
[2023-11-16] MEDS: ADENOSINE 49 MG in GIVE UN-DILUTED 0 ML IV ONE (10:05)
== END | disposition home or self-care (01) ==
LOC: XYW 08:01
PROVIDERS: ATTEND Student in an Organized Health Care Education/Training Program
DX: I25.10 Atherosclerotic heart disease of native coronary artery without angina pectoris (principal); D68.59 Other primary thrombophilia; E78.5 Hyperlipidemia, unspecified
CPT/HCPCS: 78452; 93017; A9500; J0153

== ENCOUNTER → 2023-11-20 | Outpatient (CLI) | payer BC ==
[2023-11-20 08:17] LABS: Basophils # (auto) 0 10 ^3/uL (0-0.2); Basophils % (auto) 0.5 % (0.0-2.0); Eosinophils # (auto) 0 10 ^3/uL (0-0.8); Eosinophils % (auto) 0.4 % (0.0-7.0); Hematocrit 41.8 % (36.0-46.0); Hemoglobin 13.9 g/dL (12.2-16.2); Lymphocytes # (auto) 1.5 10 ^3/uL (0.4-5.4); Lymphocytes % (auto) 21.1 % (10.0-50.0); Mean Corpuscular Hemoglobin 29.3 pg (28.0-32.0); Mean Corpuscular Hgb Conc. 33.4 g/dL (32.0-36.0); Mean Corpuscular Volume 87.7 fL (80.0-100.0); Monocytes # (auto) 0.7 10 ^3/uL (0-1.3); Monocytes % (auto) 9.4 % (0.0-12.0); Neutrophils % (auto) 68.6 % (37.0-80.0); Red Blood Cells 4.76 10^6/uL (4.0-5.20); Red Cell Distribution Width 13.5 % (11.8-14.3); White Blood Cell 7.3 10^3/uL (4.4-10.8)
[2023-11-20 09:09] LABS: Alanine Aminotransferase 19 U/L (7-40); Albumin 4.3 g/dL (3.2-4.8); Alkaline Phosphatase 50 U/L (46-116); Anion Gap 5 (5-15); Aspartate Aminotransferase 21 U/L (13-40); BUN/Creatinine Ratio 9.2 (10.0-20.0); Blood Urea Nitrogen 7 mg/dL (9-23); Calcium 9.5 mg/dL (8.5-10.1); Carbon Dioxide 28 mmol/L (20-30); Chloride 107 mmol/L (98-107); Cholesterol 127 mg/dL (< 200); Glucose 91 mg/dL (74-106); LDL Cholesterol 51 mg/dL (< 100); Potassium 4.1 mmol/L (3.5-5.1); Sodium 140 mmol/L (136-145); Triglycerides 65 mg/dL (< 150)
[2023-11-20 09:10] LABS: HDL Cholesterol 57 mg/dL (40-59); Total Protein 7.2 g/dL (5.7-8.2)
[2023-11-20 09:20] LABS: Uric Acid 2.9 mg/dL (3.1-7.8)
[2023-11-20 10:22] LABS: Free T4 (Free Thyroxine) 0.98 ng/dL (0.89-1.76)
[2023-11-20 10:23] LABS: Free T3 3.29 pg/mL (2.3-4.2)
== END | disposition home or self-care (01) ==
LOC: LAB 08:02
PROVIDERS: ATTEND Student in an Organized Health Care Education/Training Program
DX: I25.10 Atherosclerotic heart disease of native coronary artery without angina pectoris (principal); I10 Essential (primary) hypertension; E78.5 Hyperlipidemia, unspecified
CPT/HCPCS: 36415; 80053; 80061; 82306; 84439; 84443; 84481; 84550; 85025

== ENCOUNTER 2024-01-24 08:15 | Emergency (ER) | payer BC ==
[~2024-01-24] VITALS: Ht 162.6 cm; Wt 57.6 kg
[~2024-01-24 08:15] MED LIST changes: -CAR3125T PO; +CARV-214 PO
[2024-01-24 10:00] VITALS: BP 117/57; PULSE 89; RESP 18; TEMP 97.8; O2SAT 98
[2024-01-24] MEDS: SODIUM CHLORIDE 0.9% 1,000 ML IV ONE (10:23)
[2024-01-24 10:24] LABS: Basophils # (auto) 0 10 ^3/uL (0-0.2); Basophils % (auto) 0.2 % (0.0-2.0); Eosinophils # (auto) 0 10 ^3/uL (0-0.8); Eosinophils % (auto) 0.1 % (0.0-7.0); Hematocrit 42.3 % (36.0-46.0); Hemoglobin 14.2 g/dL (12.2-16.2); Lymphocytes # (auto) 0.9 10 ^3/uL (0.4-5.4); Lymphocytes % (auto) 7.2 % (10.0-50.0); Mean Corpuscular Hgb Conc. 33.5 g/dL (32.0-36.0); Mean Corpuscular Volume 86.5 fL (80.0-100.0); Monocytes # (auto) 1.1 10 ^3/uL (0-1.3); Monocytes % (auto) 8.9 % (0.0-12.0); Neutrophils # (auto) 10.7 10 ^3/uL (1.6-8.6); Neutrophils % (auto) 83.6 % (37.0-80.0); Nucleated Red Blood Cells % 0.1 %; Red Blood Cells 4.89 10^6/uL (4.0-5.20); Red Cell Distribution Width 13.3 % (11.8-14.3); White Blood Cell 12.9 10^3/uL (4.4-10.8)
[2024-01-24 10:37] LABS: Albumin 4.4 g/dL (3.2-4.8); Alkaline Phosphatase 65 U/L (46-116); Anion Gap 8 (5-15); Aspartate Aminotransferase 18 U/L (13-40); Bilirubin, Total 1.1 mg/dL (0.2-1.0); Calcium 9.2 mg/dL (8.5-10.1); Carbon Dioxide 27 mmol/L (20-30); Chloride 103 mmol/L (98-107); Glucose 103 mg/dL (74-106); Potassium 3.3 mmol/L (3.5-5.1); Sodium 138 mmol/L (136-145); Total Protein 7.3 g/dL (5.7-8.2)
[2024-01-24] MEDS: ONDANSETRON HCL 4 MG/2 ML VIAL IV ONE (11:12)
[2024-01-24 11:44] LABS: Alanine Aminotransferase < 9 U/L (7-40); BUN/Creatinine Ratio 6.6 (10.0-20.0); Blood Urea Nitrogen < 5 mg/dL (9-23)
[2024-01-24] MEDS ORDERED: ZOFR4T PO (12:14)
[2024-01-24] MEDS ORDERED: LOPE7.5C PO (12:14)
== END 2024-01-24 12:29 | disposition home or self-care (01) ==
LOC: ER 08:15
DX: R11.2 Nausea with vomiting, unspecified (principal); R19.7 Diarrhea, unspecified; I10 Essential (primary) hypertension; I25.2 Old myocardial infarction; E78.5 Hyperlipidemia, unspecified; M10.9 Gout, unspecified; Z90.49 Acquired absence of other specified parts of digestive tract; Z90.710 Acquired absence of both cervix and uterus; Z79.82 Long term (current) use of aspirin; Z79.899 Other long term (current) drug therapy; Z88.5 Allergy status to narcotic agent
CPT/HCPCS: 36415; 80053; 85025; 96361; 96374; 99283; J2405; J7030

== ENCOUNTER → 2024-11-22 | Outpatient (CLI) | payer BC ==
[~2024-11-22] VITALS: Ht 160 cm; Wt 59.4 kg
[~2024-11-22] MED LIST changes: +LOPE7.5C PO; +ZOFR4T PO
[2024-11-22] MEDS: REGADENOSON 0.4 MG/5 ML SYRG IV ONE ×2 (10:23→10:26)
--- NOTE | 2024-11-25 08:05 | DVHSR ---
APPROVED REPORT Exam: Nuclear Stress Test Indication: Chest pain BMI: 0 Medical History Medical History: DC, Stents, CAD Allergies: Morphine Stress Test Details Stress Test: Pharmacologic stress testing performed using 0.4 mg of regadenoson per 5 mL given IV ov er 10 seconds. HR Resting HR: 63 bpmMax Heart Rate (APMHR): 174.697414 bpm Max HR Achieved: 112 bpmTarget HR (85% APMHR): 147.882772 bpm % of APMHR: 64.37 Recovery HR: 73 bpm BP Resting BP: 101/55 mmHg Recovery BP: 101/50 mmHg ECG Resting ECG: Sinus Rhythm Nurse Comments Recieved pt. from [facility]. A/Ox4 on RA. Connected to cardiac care nurse, VS stable. PIV flushes well. Reviewed POC. Pt. verbalized understanding of procedure including risks and side ef fects, agrees for stress testing. Lexiscan stress test performed per protocol. [facility] tech administered Cardiolite. Pt. tolerated well . Pt. stable, no change on exam. VS returned to baseline. Transferred to [facility] via wheelchair w/ te ch. Stress ECG Conclusion 1/[address] depressions noted on stress portion septal ischemai noted on stress mpi nuclear portion abnormal stress lvef is 64% NM EXAM: Myocardial Perfusion REST/STRESS Imaging Protocol: Rest Tc-99m/Stress Tc-99m 1 day Resting Data Rest SPECT myocardial perfusion imaging was performed in supine position 60 minutes following the int ravenous injection of 11.3 mCi of Tc-99m Sestamibi. Time of rest injection: 0840 Time of rest imagin Administration Route: IV Administration Site: Right Hand Pharmacologic Stress Pharmacologic stress test was performed by injecting Regadenoson 0.4 mg IV push followed by the intra venous injection of 30 mCi of Tc-99m Sestamibi. Time of stress injection: 1023 Time of stress imagin Administration Route: IV Administration Site: Right Hand Gated Stress SPECT was performed 60 minutes after stress injection. The images were gated to evaluate regional wall motion and calculate left ventricular ejection fracti on. Stress only was performed in the Supine position. Nuclear Conclusion ECG Findings: positive for ischemia Nuclear Findings: positive for ischemia 1/[address] depressions noted on stress portion septal ischemai noted on stress mpi nuclear portion abnormal stress lvef is 64%
== END | disposition home or self-care (01) ==
LOC: XYW 08:18
PROVIDERS: ATTEND Internal Medicine
DX: I99.8 Other disorder of circulatory system (principal); R07.9 Chest pain, unspecified; I25.10 Atherosclerotic heart disease of native coronary artery without angina pectoris; Z88.5 Allergy status to narcotic agent
CPT/HCPCS: 93017; J2785; 78452

== ENCOUNTER 2024-12-04 08:05 | Day surgery (SDC) | payer BC ==
[2024-12-02 14:20] LABS: Basophils # (auto) 0 10 ^3/uL (0-0.2); Basophils % (auto) 0.3 % (0.0-2.0); Eosinophils # (auto) 0.1 10 ^3/uL (0-0.8); Eosinophils % (auto) 0.5 % (0.0-7.0); Hematocrit 39.2 % (36.0-46.0); Hemoglobin 13.3 g/dL (12.2-16.2); Lymphocytes # (auto) 1.4 10 ^3/uL (0.4-5.4); Lymphocytes % (auto) 14.6 % (10.0-50.0); Mean Corpuscular Hemoglobin 30.2 pg (28.0-32.0); Mean Corpuscular Volume 88.7 fL (80.0-100.0); Monocytes # (auto) 0.6 10 ^3/uL (0-1.3); Monocytes % (auto) 6.2 % (0.0-12.0); Neutrophils # (auto) 7.8 10 ^3/uL (1.6-8.6); Neutrophils % (auto) 78.4 % (37.0-80.0); Platelet Count (auto) 220 10^3/uL (140-450); Red Blood Cells 4.42 10^6/uL (4.0-5.20); Red Cell Distribution Width 13.6 % (11.8-14.3); White Blood Cell 9.9 10^3/uL (4.4-10.8)
[2024-12-02 14:39] LABS: INR 1.02 (0.9-1.15); Partial Thromboplastin Time 28.5 SEC (24.5-34.5); Prothrombin Time 10.8 sec (9.3-11.8)
[2024-12-02 14:48] LABS: Alanine Aminotransferase 15 U/L (7-40); Albumin 4.4 g/dL (3.2-4.8); Alkaline Phosphatase 61 U/L (46-116); Anion Gap 7 (5-15); Aspartate Aminotransferase 14 U/L (13-40); BUN/Creatinine Ratio 13.7 (10.0-20.0); Blood Urea Nitrogen 10 mg/dL (9-23); Calcium 9.8 mg/dL (8.7-10.4); Carbon Dioxide 28 mmol/L (20-31); Chloride 105 mmol/L (98-107); Glucose 90 mg/dL (74-106); Sodium 140 mmol/L (136-145); Total Protein 6.8 g/dL (5.7-8.2)
[2024-12-02 14:49] LABS: Bilirubin, Total 0.7 mg/dL (0.2-1.0)
[~2024-12-04] VITALS: Ht 160 cm; Wt 61.7 kg
[2024-12-04] VITALS (8 sets, daily range): BP systolic 97–114; BP diastolic 59–73; PULSE 67–78; RESP 12–22; O2SAT 94–100
[~2024-12-04 08:05] MED LIST changes: -ALBUAER3 IN; +ALPR0.254 PO; +APIX5TAB PO; -ASPI1TAB20 PO; +ATOR-507 PO; -ATOR40TA52 PO; -CARV-214 PO; +CLOP75TA70 PO; -COLC0.6T56 PO; +ERGO1CAP23 PO; +EZET10TA22 PO; -LOPE7.5C PO; -LORA-1121 PO; -MAGN241.4 PO; -PANT40TA2 PO; -SACU1TAB PO; -TICA90TA PO; +UBRO100T2 PO; -ZOFR4T PO
[2024-12-04] MEDS ORDERED: ANGIOMAX 250 MG VIAL IV ONE (08:12)
[2024-12-04] MEDS ORDERED: fentaNYL CITRATE 100 MCG/2 ML VL ONE (08:13)
[2024-12-04] MEDS ORDERED: VERAPAMIL 2.5MG/ML INJ 2ML VIAL IV ONE (08:13)
[2024-12-04] MEDS ORDERED: MIDAZOLAM HCL 2MG/2ML 2ml VIAL (1mg/ml) ONE (08:13)
[2024-12-04] MEDS ORDERED: HEPARIN SODIUM (PORCINE) 5000 UNITS/ML 1ML VIAL ONE (08:13)
[2024-12-04] MEDS ORDERED: SODIUM CHL 0.9% 0 ML ONE (08:14)
[2024-12-04] MEDS ORDERED: LIDOCAINE 2%HCL (LOCAL ANESTH.) INJ 20ML MDV ONE (08:14)
[2024-12-04] MEDS ORDERED: MEPERIDINE HCL (25 MG/ML) 1ML VIAL ONE (11:07)
--- NOTE | 2024-12-04 11:36 | DVHOP2 ---
Operative Report - 2 Report Details Date: 12/04/24 Preop Diagnosis: CLINICAL PROFILE: 44-year-old lady with a history of STEMI several years ago. Stenting of LAD and left main. Patient has had recurrent symptoms. Anteroseptal ischemia noted on stress test, patient is sent for cardiac catheterization. Postop Diagnosis: No coronary in stent restenosis. Normal ventricular function. Normal end-diastolic pressure Surgeon: Collin Mcclelland MD Anesthesiologist: Conscious sedation Anesthesia: Mac (Personally Versed and fentanyl I monitored the patient throughout the entirety of the procedure.), Local Consent: The patient was informed of the risks and benefits of the procedure. These include but are not limited to complications of anesthesia, postoperative infection, incomplete relief of symptoms, recurrence of symptoms, damage to blood vessels, nerves and tendons, deep venous thrombosis, pulmonary embolism and possible need for repeat surgery in the future. Complications: No complications. Estimated Blood Loss: 5 cc Findings: No in stent restenosis. Normal ejection fraction. Normal end-diastolic pressures Indications for Surgery: Abnormal stress test. Chest pain Name of Procedure Performed Left heart catheterization bilateral cine coronary angiography, left ventriculography. Procedure Details Procedure Details: Prior local anesthesia with 2% lidocaine to the right wrist and full informed consent obtained patient was prepped and draped in usual fashion followed by placement of a six [place] sheath into the radial artery through which a Rodolfo catheter was used for ventriculography and RCA cannulation. AJR three was used for cannulation of the left main. No complications. Hemodynamics: Aortic blood pressure was 110/70. End-diastolic pressure was 12. There was no gradient across the aortic valve on pullback. Coronary anatomy : the RCA is a large vessel it is nondominant. It is normal in its proximal mid and distal segments. Left main is large. It is normal. There was no stenosis in its proximal mid or distal segment. It has been stented along with the LAD. No in stent restenosis. Left anterior descending coronary artery is also stented proximally and in its mid section. Non-STEMI stenosis noted. Excellent antegrade flow without thrombus formation under dissection. The circumflex has been stented as well at the ostium and its proximal portion. No in stent restenosis noted. The marginal is normal. The circumflex proper gives off PDA. It is Normal. Ventriculography: Ventriculography was performed in the ANNE projection. EF is 65%. Impression: Normal left ventricular end-diastolic pressure at rest. Normal ejection fraction. Stented left main LAD and circumflex without in stent restenosis. Recommendations: Continue medical therapy. Risk factor modification to continue Condition Good Disposition Home Date of Service: Dec 04, 2024 Billing Provider: COLLIN MCCLELLAND Sr., MD Cardiology Common Codes: 77387-WOHTAVU INP/OBS CARE (High) Cardiology Procedure Codes: 67071-QHJL HEART CATH W/INTRA INJ, 73598-X/L HEART CATH W/BYPASS GFT COLLIN MCCLELLAND Sr., MD Dec 04, 2024 11:36
[2024-12-04] MEDS: MEPERIDINE HCL (25 MG/ML) 1ML VIAL IV ONE (12:07)
== END 2024-12-04 13:26 | disposition home or self-care (01) ==
LOC: CATH 08:05
PROVIDERS: ATTEND Internal Medicine
DX: R94.39 Abnormal result of other cardiovascular function study (principal); R07.9 Chest pain, unspecified; I25.2 Old myocardial infarction; Z95.5 Presence of coronary angioplasty implant and graft; E78.5 Hyperlipidemia, unspecified; I25.110 Atherosclerotic heart disease of native coronary artery with unstable angina pectoris; Z79.899 Other long term (current) drug therapy; Z79.82 Long term (current) use of aspirin; Z79.01 Long term (current) use of anticoagulants
CPT/HCPCS: 36415; 80053; 84702; 85025; 85610; 85730; 93458; C1769; C1887; C1894; J1644; J2175; J2250; J3010; 99152